=== PATIENT | female | born 2000 | race Caucasian/White ===

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

== ENCOUNTER 2019-01-22 17:49 | Emergency (ER) | payer OTHER ==
[2019-01-22 18:34] VITALS: BP 96/52
--- NOTE | 2019-01-22 19:16 | UC ---
Throat Pain/Nasal [place] HPI - HPI Summary HPI Summary: Pt presents with 2 c/o 1. Pt c/o of nasal congestion, sinus pressure and pain X 2-3 weeks. 2. Pt c/o low back ache, urinary urgency, frequency and dysuria X 2- 3 days. - History of Current Complaint Chief Complaint: UCGeneralIllness Stated Complaint: URINARY Time Seen by Provider: 01/22/19 18:33 Hx Obtained From: Patient Hx Last Menstrual Period: HAS BEEN HAVING HER PERIOD SINCE 01/01/19 ?: No Onset/Duration: Sudden Onset, Lasting Days - urinary c/o, Lasting Weeks - nasal congestiona nd sinus c/o X 2 weeks., Still Present Severity: Moderate Pain Intensity: 7 Cough: None Associated Signs & Symptoms: Positive: Sinus Discomfort, Nasal Discharge - Epiglottits Risk Factors Epiglottis Risk Factors: Negative - Allergies/Home Medications Allergies/Adverse Reactions: Allergies Allergy/AdvReac Type Severity Reaction Status Date / Time No Known Allergies Allergy Verified 01/22/19 18:21 Home Medications: Home Medications Anxiety Med, ? Name 1 tab PO BID 01/22/19 [History] guaiFENesin ER TAB [Mucinex*] 600 mg PO BID PRN 01/22/19 [History Confirmed 10/05] medroxyPROGESTERone ACETATE* [DEPO-Provera*] 150 mg IM 01/22/19 [History] PMH/Surg Hx/FS Hx/Imm Hx Previously Healthy: Yes - Surgical History Surgical History: None Surgery Procedure, Year, and Place: denies - Family History Known Family History: Positive: None - No diabetes, renal disease or heart problems per mom. Healthy family., Cardiac Disease - Social History Occupation: Student Lives: With Family Alcohol Use: None Substance Use Type: None Smoking Status (MU): Never Smoked Tobacco Have You Smoked in the Last Year: No Household Exposure Type: Cigarettes - Immunization History Most Recent Influenza Vaccination: 4112-9332 Vaccination Up to Date: Yes Review of Systems All Other Systems Reviewed And Are Negative: Yes Constitutional: Positive: Chills, Fatigue Skin: Positive: Negative Eyes: Positive: Negative ENT: Positive: Nasal Discharge, Sinus Congestion, Sinus Pain/Tenderness Respiratory: Positive: Negative Cardiovascular: Positive: Negative Gastrointestinal: Positive: Abdominal Pain - pelvic/low back Genitourinary: Positive: Dysuria, Frequency, Urgency Motor: Positive: Negative Neurovascular: Positive: Negative Musculoskeletal: Positive: Myalgia - low back Neurological: Positive: Negative Psychological: Positive: Negative Is Patient Immunocompromised?: No Physical Exam Triage Information Reviewed: Yes Appearance: Well-Appearing Vital Signs: Initial Vital Signs Temp 99.7 F 01/22/19 18:24 Pulse 70 01/22/19 18:24 Resp 20 01/22/19 18:24 BP 96/52 01/22/19 18:24 Pulse Ox 100 01/22/19 18:24 Vital Signs Reviewed: Yes Eye Exam: Normal ENT: Positive: Nasal congestion, Sinus tenderness Dental Exam: Normal Neck exam: Normal Respiratory Exam: Normal Cardiovascular Exam: Normal Abdominal Exam: Normal Musculoskeletal Exam: Normal Neurological Exam: Normal Psychological Exam: Normal Skin Exam: Normal Throat Pain/Nasal Course/Dx - Course Course Of Treatment: I discussed with the pt the risk for and STD. Pt denies risk but did agree to testing. - Differential Dx/Diagnosis Differential Diagnosis/HQI/PQRI: Sinusitis, URI, Other - uti, std Provider Diagnosis: Sinusitis, Pelvic pain Discharge ED - Sign-Out/Discharge Documenting (check all that apply): Patient Departure All imaging exams completed and their final reports reviewed: No Studies - Discharge Plan Condition: Stable Disposition: HOME Prescriptions: Amoxicillin PO (*) [Amoxicillin 875 MG (*)] 875 mg PO Q12H #20 tab Fexofenadine/Pseudoephedrine [Monica-D 24 Hour Tablet] 1 each PO DAILY #10 tab.er.24h Patient Education Materials: Sinusitis (ED), Pelvic Pain in Women (ED) Referrals: Dagoberto Posadas PA [Primary Care Provider] - If Needed Additional Instructions: Please follow up with your PCP if your symptoms do not improve or they worsen. - Billing Disposition and Condition Condition: STABLE Disposition: Home - Attestation Statements Provider Attestation: Per institutional requirements, I have reviewed the chart, however, I was not consulted specifically or made aware of this patient by the midlevel provider. I did not personally evaluate, interact with , or disposition this patient.
[2019-01-26 13:24] LABS: Chlamydia trachomatis NAA Negative (Negative); Neisseria gonorrhoeae (GC) NAA Negative (Negative)
== END 2019-01-22 19:33 | disposition home or self-care (01) ==
LOC: UCCORT 17:49
DX: J32.9 Chronic sinusitis, unspecified (principal); R10.2 Pelvic and perineal pain
CPT/HCPCS: 81003; 87077; 87086; 87491; 87591; 99212; G0463